=== PATIENT | female | born 2005 | race Caucasian/White ===

== ENCOUNTER 2024-04-18 17:38 | Inpatient (IN) ==
[2024-04-18] MEDS ORDERED: Nalbuphine 10 MG/ML 1 ML VIAL IV PRN (18:29)
[2024-04-18 20:41] LABS: Hematocrit 36.4 % (35-45); Hemoglobin 11.8 g/dL (11.5-14.3); Mean Corpuscular Hemoglobin 24.5 pg (27-33); Mean Corpuscular Hgb Conc 32.6 g/dL (31-36); Mean Corpuscular Volume 75.2 fL (80-97); Mean Platelet Volume 9.6 fL (7.5-11.2); Platelet Count 198 10^3/uL (150-450); Red Blood Count 4.84 10^6/uL (3.63-4.92); Red Cell Distribution Width 16.5 % (12-17); White Blood Count 18.2 10^3/uL (3.8-11.8)
[2024-04-18] MEDS ORDERED: Lidocaine 1% VIAL 10 MG/ML 30 ML VIAL INJ PRN (21:01)
[2024-04-18 21:44] LABS: Urine Benzodiazepine Screen None Detected (None Detect); Urine Cannabinoids Screen Presumptive Positive (None Detect); Urine Opiates Screen None Detected (None Detect)
[2024-04-18] MEDS: OBEPIDURAL (200 ML) 200 ML EPIDURAL ONE (22:05)
[2024-04-18 22:48] LABS: Urine Appearance Clear; Urine Bilirubin Negative (Negative); Urine Blood Negative (Negative); Urine Color Colorless; Urine Glucose Negative (Negative); Urine Ketones Trace (Negative); Urine Nitrite Negative (Negative); Urine Protein Negative (Negative); Urine Specific Gravity 1.003 (1.002-1.030); Urine Urobilinogen Negative (Negative)
[2024-04-19] MEDS ORDERED: Sodium Citrate/Citric Acid LIQ 15 ML UDC PO PRN (06:24)
[2024-04-19] MEDS ORDERED: Phenylephrine 40 mcg/mL 10mL (400mcg) SYRINGE IV PUSH PRN ×2 (06:24)
[2024-04-19] MEDS: Lactated Ringers 1000 ml BAG 1,000 ML IV SCH ×2 (07:30→19:00)
[2024-04-19] MEDS ORDERED: Glycerin ADULT 2.4 gm SUPP PR PRN (08:06)
[2024-04-19] MEDS ORDERED: Lactated Ringers 1000 ml BAG 1,000 ML IV SCH (09:00)
[2024-04-19] MEDS: Witch Hazel PAD JAR TOPICAL PRN (11:08)
[2024-04-19] MEDS: Dibucaine 1% OINT 28.35 GM TUBE PR PRN (11:08)
[2024-04-19] MEDS: Lactated Ringers 1000 ml BAG 1,000 ML IV ONE ×2 (18:59→19:00)
[2024-04-19] MEDS: Lidocaine 2% w/ EPI 1:200,000 MPF 20 ML SDV VIAL ONE (18:59)
[2024-04-19] MEDS: Buffered Lidocaine 1% SYRIN 1 ml INTRADERM ONE (18:59)
[2024-04-19] MEDS: Phenylephrine 40 mcg/mL 10mL (400mcg) SYRINGE ONE (18:59)
[2024-04-19] MEDS: Lidocaine 1.5% EPI 1:200,000 30 ML SDV ONE (19:00)
[2024-04-19] MEDS: OBEPIDURAL (200 ML) 200 ML EPIDURAL SCH (19:00)
[2024-04-20 09:12] LABS: ABS Basophils 0.1 10^3/uL (0.0-0.1); ABS Eosinophils 0.2 10^3/uL (0.0-0.5); ABS Lymphocytes 3.9 10^3/uL (1.0-4.8); ABS Monocytes 1.2 10^3/uL (0.0-0.9); ABS Neutrophils 13.1 10^3/uL (1.5-7.6); ABS Nucleated RBC 0.02 10^3/ul; Eosinophil % 0.9 %; Hematocrit 31.6 % (35-45); Hemoglobin 10.2 g/dL (11.5-14.3); Lymphocyte % 21.1 %; Mean Corpuscular Hemoglobin 24.5 pg (27-33); Mean Corpuscular Hgb Conc 32.4 g/dL (31-36); Mean Corpuscular Volume 75.8 fL (80-97); Mean Platelet Volume 9.6 fL (7.5-11.2); Nucleated Red Blood Cells % 0.1 %/100WBC (0.0-0.8); Platelet Count 165 10^3/uL (150-450); Red Blood Count 4.17 10^6/uL (3.63-4.92); Red Cell Distribution Width 16.7 % (12-17); White Blood Count 18.4 10^3/uL (3.8-11.8)
[2024-04-21 08:24] VITALS: BP 112/62
[2024-04-21 13:16] LABS: Syphilis IgG Screen Nonreactive
== END 2024-04-21 14:26 | disposition home or self-care (01) | DRG 560 ==
LOC: MCHOBOUT 17:38 → MCHOB 20:58
PROVIDERS: ADMIT Midwife; ATTEND Midwife